=== PATIENT | female | born 1955 | race Caucasian/White ===

== ENCOUNTER 2017-03-12 09:05 | Emergency (ER) | payer MEDICARE ==
[~2017-03-12] VITALS: Ht 162.6 cm; Wt 124.7 kg
[~2017-03-12 09:05] MED LIST: ALBU2.5V5 NEB; ALPR2TAB5 PO; ASPI81TA2 PO; CALC500T PO; CETI10TA16 PO; CLON1PAT TD; DIPH25TA64 PO; DOCU100C5 PO; ERGO500012 PO; FAMO20TA5 PO; FEXO180T81 PO; FLUC150T2 PO; FLUO15CR TP; FLUT1DIS3 IH; FURO20TA3 PO; FURO40TA4 PO; GUAI5SYR PO; HYDR-2672 PO; HYDR25TA9 PO; HYDROCORTISONE28 G1 TP; LEVO25TA4 PO; LEVO500T38 PO; LEVO500T8 PO; LISI10TA2 PO; MECL25TA3 PO; METH4TAB7 PO; NYST15CR TP; OXYC1TAB9 PO; OXYC20TA PO; PANT40GR PO; PANT40TA5 PO; POTA20TA12 PO; POTA20TA82 PO; PRED-220 PO; PROAIR HFA8.5 GM IH; PROVENTIL HFA6.7 GM IH; RAMI2.5C PO; RANI300C PO; SENN8.6C2 PO; SIME125C65 PO; SUCR1TAB PO; TIOT18CA IH; TOLN15CR TP; VENL150C6 PO; VERA180T49 PO; ZOLP5TAB5 PO
[2017-03-12] MEDS ORDERED: IPRATRPIUM/ALBUTEROL 0.5/2.5MG 3 ML NEBU. NEB ONE ×2 (09:30→10:30)
--- NOTE | 2017-03-12 09:39 | EKG ---
[facility] [address] [place] [address] Test Date: 2017-03-12 Test Time: 09:10:18 Pat Name: SHANDRA LIN Department: Room: Gender: F Car Stereo Installer: Valery : 1955 Requested By: SHANDRA HALE Order Number: [id number] Reading MD: Lucas House Measurements Intervals [place] Rate: 95 P: 32 VA: 204 QRS: -11 QRSD: 84 T: 64 QT: 370 QTc: 468 Interpretive Statements SINUS RHYTHM Electronically Signed On 03-13-2017 10:35:49 CDT by Lucas House
[2017-03-12 09:48] LABS: BASO % 1 % (0-3); EOS % 4 % (0-3); HEMATOCRIT 31.3 % (36.0-47.0); LYMPH # 1.7 x10^3/uL (1.0-4.8); LYMPH % 28 % (24-48); MEAN CORPUSCULAR HEMOGLOBIN 26 pg (25-35); MEAN CORPUSCULAR HGB CONC 32 g/dL (31-37); MEAN CORPUSCULAR VOLUME 82 fL (79-100); MONO % 5 % (0-9); NEUT % 62 % (31-73); PLATELET COUNT 288 x10^3/uL (140-400); RED BLOOD COUNT 3.84 x10^6/uL (3.50-5.40); RED CELL DISTRIBUTION WIDTH 15.4 % (11.5-14.5); WHITE BLOOD COUNT 5.9 x10^3/uL (4.0-11.0)
--- NOTE | 2017-03-12 09:49 | PHYS DOC ---
Past Medical History Past Medical History: Anxiety, Asthma, Bronchitis, CHF, COPD, Depression, Hypertension, Pneumonia Additional Past Medical Histor: ulcers;gastroparesis;insomnia,TEETH INFECTION, tachycardia Past Surgical History: Hysterectomy, Tonsillectomy, Other Additional Past Surgical Histo: left breast sx; ankle ORIF W/ HARDWARE REMOVAL Alcohol Use: None Drug Use: None Adult General Chief Complaint Chief Complaint: multiple HPI HPI Patient is a 62 year old female brought from home by ambulance with multiple complaints. The patient states that she feels weak all over. She fell a week ago and still hurts all over from that fall. Today she feels short of breath and has chest pain. Patient states that she was seen at [facility] after the fall and had x-rays but everything still hurts. She was diagnosed a few weeks ago with blood clots in her lungs and she was started on Eliquis, but then when she was seen last week after a fall they told her to stop taking it because she was having falls. Patient states she has been taking her medications as prescribed including that she stopped Eliquis however has been out of her nebulized DuoNeb for some time because it is expensive and instead she has been using her pro-air inhaler. Also complains that her left hand is numb. Patient lives alone. She states she is in a wheelchair at home because she is not able to walk. PCP Dr. Xuan Cantu Review of Systems Review of Systems Constitutional: Denies fever or chills [] Eyes: Denies change in visual acuity, redness, or eye pain [] HENT: Denies nasal congestion or sore throat [] Respiratory: She is chronically on oxygen and states she is short of breath. Cardiovascular: She has had chest discomfort for an undetermined length of time GI: Denies abdominal pain, nausea, vomiting, bloody stools or diarrhea [] : Denies dysuria or hematuria [] Musculoskeletal: She hurts all over including her back and most joints Integument: Denies rash or skin lesions [] Neurologic: Denies headache, focal weakness or sensory changes [] Current Medications Current Medications Current Medications Medications (Trade) Dose Ordered Sig/Mesha Start Time Stop Time Status Last Admin Dose Admin Acetaminophen/ Hydrocodone Bitart (Lortab 5/325) 1 tab 1X ONCE 03/12/17 14:15 03/12/17 14:16 DC 03/12/17 14:16 1 TAB Albuterol/ Ipratropium (Duoneb) 3 ml 1X ONCE 03/12/17 10:30 03/12/17 10:31 DC 03/12/17 10:30 3 ML Allergies Allergies Allergies Coded Allergies Type Severity Reaction Last Updated Verified haloperidol Allergy Intermediate 09/24/16 Yes Physical Exam Physical Exam Constitutional: Well developed, well nourished, no acute distress, non-toxic appearance. Alert, mentating normally. No dyspnea. HENT: Normocephalic, atraumatic, bilateral external ears normal, nose normal. [ ] Eyes: conjunctiva normal, no discharge. [] Neck: Normal range of motion, no stridor. [] Cardiovascular:Heart rate regular rhythm, no murmur [] Lungs & Thorax: Bilateral breath sounds clear to auscultation [] Abdomen: Bowel sounds normal, soft, no tenderness, no masses, no pulsatile masses. [] Skin: Warm, dry, no erythema, no rash. [] Extremities: No tenderness, no cyanosis, no clubbing, ROM intact, no edema. Resolving ecchymoses of both knees, no joint effusion or bony tenderness, full range of motion of all extremities Neurologic: Alert and oriented X 3, normal motor function, normal sensory function, no focal deficits noted. [] Current Patient Data Vital Signs Vital Signs Date Time Temp Pulse Resp B/P (MAP) Pulse Ox O2 Delivery O2 Flow Rate FiO2 03/12/17 10:33 91 Nasal Cannula 2.0 03/12/17 09:10 98.1 83 18 190/84 (119) 98.1 Lab Values Laboratory Tests Test 03/12/17 09:40 White Blood Count 5.9 x10^3/uL (4.0-11.0) Red Blood Count 3.84 x10^6/uL (3.50-5.40) Hemoglobin 10.0 g/dL (12.0-15.5) L Hematocrit 31.3 % (36.0-47.0) L Mean Corpuscular Volume 82 fL (79-100) Mean Corpuscular Hemoglobin 26 pg (25-35) Mean Corpuscular Hemoglobin Concent 32 g/dL (31-37) Red Cell Distribution Width 15.4 % (11.5-14.5) H Platelet Count 288 x10^3/uL (140-400) Neutrophils (%) (Auto) 62 % (31-73) Lymphocytes (%) (Auto) 28 % (24-48) Monocytes (%) (Auto) 5 % (0-9) Eosinophils (%) (Auto) 4 % (0-3) H Basophils (%) (Auto) 1 % (0-3) Neutrophils # (Auto) 3.7 x10^3uL (1.8-7.7) Lymphocytes # (Auto) 1.7 x10^3/uL (1.0-4.8) Monocytes # (Auto) 0.3 x10^3/uL (0.0-1.1) Eosinophils # (Auto) 0.2 x10^3/uL (0.0-0.7) Basophils # (Auto) 0.0 x10^3/uL (0.0-0.2) Prothrombin Time 12.4 SEC (11.7-14.0) Prothrombin Time INR 1.0 (0.8-1.1) Sodium Level 142 mmol/L (136-145) Potassium Level 4.0 mmol/L (3.5-5.1) Chloride Level 101 mmol/L (98-107) Carbon Dioxide Level 38 mmol/L (21-32) H Anion Gap 3 (6-14) L Blood Urea Nitrogen 15 mg/dL (7-20) Creatinine 0.9 mg/dL (0.6-1.0) Estimated GFR (Cockcroft-Gault) 63.2 Glucose Level 107 mg/dL (70-99) H Calcium Level 9.1 mg/dL (8.5-10.1) Magnesium Level 2.1 mg/dL (1.8-2.4) Total Bilirubin 0.2 mg/dL (0.2-1.0) Direct Bilirubin 0.1 mg/dL (0.0-0.2) Aspartate Amino Transferase (AST) 16 U/L (15-37) Alanine Aminotransferase (ALT) 20 U/L (14-59) Alkaline Phosphatase 68 U/L (46-116) Creatine Kinase 63 U/L (26-192) Creatine Kinase MB (Mass) < 0.5 ng/mL (0.0-3.6) Creatine Kinase MB Relative Index % (0-4) Troponin I Quantitative < 0.017 ng/mL (0.000-0.055) XS-Zet-C-Type Natriuretic Peptide 136 pg/mL (0-124) H Total Protein 7.7 g/dL (6.4-8.2) Albumin 3.4 g/dL (3.4-5.0) Laboratory Tests 03/12/17 09:40 Laboratory Tests 03/12/17 09:40 EKG EKG 12-lead EKG read by me. Sinus rhythm. Heart rate 95. There are no acute ST or T wave changes indicative of ischemia or infarction. No STEMI. 0910[] Radiology/Procedures Radiology/Procedures One view portable chest x-ray read by the radiologist. No acute findings. [] Course & Med Decision Making Course & Med Decision Making Pertinent Labs and Imaging studies reviewed. (See chart for details) 62-year-old female presents by ambulance from home with multiple complaints. I advised the patient we will get some labs, chest x-ray, give her breathing treatment and do some evaluation of her multiple complaints. Patient was very argumentative, told me that she could tell that I don't want to help her. She continued to be very argumentative with nursing staff during her ED stay. Respiratory therapist told me that the patient states that she does not want a DuoNeb treatment because the albuterol makes her heart race too much. She said she would take just ipratropium but no albuterol. I don't feel that ipratropium alone will do her any good, she needs a DuoNeb, so she wants to decline at that is her prerogative. Patient ended up stating that she does want the breathing treatment after all so I believe respiratory therapist returned and gave her a DuoNeb treatment. Patient rested comfortably in the emergency department with stable vital signs. Labs, chest x-ray unrevealing for any acute findings. I was able to review the patient's recent hospitalization here at [place] and I also requested records from [facility]. She's had 2 recent hospitalizations at [facility], during which she has had many, many imaging studies including x-ray of many bony complaints, CT scans, bone scan. In fact, the patient did have a CT and of her chest back in January that showed pulmonary emboli of undetermined chronicity. At that time, they did start her on Eliquis but then by her history, when she came back with falls, they told her to stop it. I visited with the patient and told her that the good news is we are not finding any serious cause of her complaints today, and that I do recommend outpatient follow-up with her primary care physician for her multiple ongoing complaints. The patient was very argumentative, stating that none of his care about her, very difficult with nursing staff when they tried to help her, this appears consistent with her usual behavior both at [facility] and here at [place]. I discussed with the patient discharge to home and she stated she will be able to get home. Evidently she usually does get transported home in an ambulance because she is not ambulatory. That is not an acute finding , she told the nursing staff that she gets around in a wheelchair at home all the time. Therefore, EMS was called for transport back to the patient's home. The patient remained stable during her entire ED stay and was discharged stable to home. [] Dragon Disclaimer Dragon Disclaimer This electronic medical record was generated, in whole or in part, using a voice recognition dictation system. Departure Departure Impression: Primary Impression: Generalized pain Additional Impression: Bilateral knee pain Disposition: HOME, SELF-CARE Condition: STABLE Referrals: XUAN HARDING (PCP) Patient Instructions: Chronic Pain Management-Brief Additional Instructions: As we discussed, lab tests and x-rays in the emergency department today did not show any serious cause of your symptoms. I was also able to review recent emergency department results from [facility] to aid in my diagnosis. I recommend that you follow up with your primary care doctor for discussion of management of your chronic medical problems. Be sure you take your medications as prescribed. Whether or not a blood thinner is appropriate is something that you should discuss with your primary care doctor; do not resume the blood thinner until you discuss the risks and benefits with your primary care doctor. Problem Qualifiers SHANDRA HALE MD March 12, 2017 09:49
--- NOTE | 2017-03-12 09:51 | RAD ---
Portable AP chest. History: History hypertension, CHF, COPD, asthma AP view was taken of the chest. Comparison is made with a study from January 17. There is scarring at the left heart border at the left costophrenic angle without change. Heart is within normal limits in size. There are no acute infiltrates. There is no effusion. Impression: 1. No acute infiltrates.
[2017-03-12 09:56] LABS: PROTHROMBIN TIME PATIENT 12.4 SEC (11.7-14.0)
[2017-03-12 10:04] LABS: CALCIUM 9.1 mg/dL (8.5-10.1); CREATININE 0.9 mg/dL (0.6-1.0); GFR 63.2
[2017-03-12 10:12] LABS: ALBUMIN 3.4 g/dL (3.4-5.0); DIRECT BILIRUBIN 0.1 mg/dL (0.0-0.2); MAGNESIUM 2.1 mg/dL (1.8-2.4); TOTAL BILIRUBIN 0.2 mg/dL (0.2-1.0); TOTAL PROTEIN 7.7 g/dL (6.4-8.2)
[2017-03-12 10:19] LABS: CKMB MASS < 0.5 ng/mL (0.0-3.6); CREATINE KINASE 63 U/L (26-192)
--- NOTE | 2017-03-12 12:00 | ACF ---
Admission Forms Criteria CHEST PAIN Clinical Indications for Admission to Inpatient Care (Place 'X' for any and all applicable criteria): Admission is indicated for chest pain and ANY ONE of the following(1)(2)(3)(4)(5 ): [ ]I. Angina with acute coronary syndrome (Also use Myocardial Infarction or Angina guideline) [ ]II. Hemodynamic instability [ ]III. Angina needing acute intervention as indicated by ALL of the following( 11)(12): [ ]a) Unstable angina is present as indicated by angina that is ANY ONE of the following: [ ]i) New onset [ ]ii) Nocturnal [ ]iii) Prolonged at rest [ ]iv) Progressive [ ]b) Angina warrants acute intervention as indicated by ANY ONE of the following: [ ]i) Recurrent angina (e.g, not responding as previously to treatment) [ ]ii) Angina at rest or with low-level activities despite initial medical therapy [ ]iii) New or presumably new ST-segment depression on ECG [ ]iv) Signs or symptoms of heart failure (eg, dyspnea, pulmonary edema) [ ]v) New or worsening mitral regurgitation [ ]vi) Hemodynamic instability [ ]vii) Dangerous arrhythmia (eg, sustained ventricular tachycardia) [ ]viii) History of percutaneous coronary intervention within 6 months [ ]ix) History of coronary artery bypass graft surgery [ ]x) CARLOS risk score of 2 or greater[A] [ ]xi) History of Diabetes(14) [ ]xii) High-risk cardiac ischemia findings on noninvasive testing (e.g, echocardiogram, treadmill testing, nuclear scan) [ ]xiii) Chronic renal insufficiency (ie, estimated GFR less than 60 mL/min/1.732m) [ ]xiv) Left ventricular ejection fraction less than 40% [ ]IV. Evidence of MN (eg, cardiac biomarkers positive, ST-segment elevation on ECG) also use Myocardial Infarction Criteria Form. [ ]V. Pulmonary edema [ ]. Respiratory distress [ ]VII. Chest pain indicative of serious diagnosis other than coronary artery disease (eg, aortic dissection) [ ]VIII. Contraindications and/or Inappropriate clinical situations for Observational Care in patients with Chest Pain, when ANY ONE of the following is required: [ ]a) Patient with risk factor for pulmonary embolism, acute coronary syndrome and myocardial infarction (18) [ ]b) Patient with Pulmonary embolism require an average LOS of 4.3 days, therefore emergency department observation management is inappropriate 18,23 [ ]c) Painful condition/s in the elderly, have the highest rate of recidivism after emergency department observation management (10.8%) 20,21,22 [ ]d) Elevated cardiac biomarker requires intensive and exhaustive care (19) [XIX. General contraindications and/or Inappropriate clinical situations for Observational Care in patients with Chest Pain, when ANY ONE of the following is required: [ ]a) Prediction of prolongation of LOS based on ANY ONE of the following may be considered as a contraindication for observational care 2, 3, 4, 5, 6, 7, 8, 9, 10, 11 [ ]i) Age > 65 yrs. [ ]ii) Patient arriving by ambulance [ ]iii) Patient with high acuity [ ]iv) Patient requiring vital sign monitoring [ ]v) Patient on IV medication [X]b) Systolic blood pressures 180mmHg 3,12 [ ]c) Patient with altered mental status including delirium and other alteration of consciousness, (3) [ ]d) Patient whose discharge disposition will be to a penitentiary home or rehabilitation home should not be managed in Emergency Department Observation Unit. CMS rule requires 3 days hospital stay before such placement. 3,13 [ ]e) Patient with failure to thrive due to broad array of etiologies 3,16,17 [ ]f) Inability to ambulate 3,14 Extended stay beyond goal length of stay may be needed for (1)(28): [ ]a) Specific condition diagnosed after evaluation (eg, pulmonary embolism, aortic dissection) [ ]b) Unstable angina [ ]c) Continued suspicion of acute coronary syndrome with inability to complete needed cardiac evaluation (eg, patient clinically unable to undergo stress testing) [ ]d) Myocardial infarction (Contents from ANGINA and CHEST PAIN clinical indications for admission to inpatient care have been integrated in this form) The original [employer] content created by [employer] has been revised. The portions of the content which have been revised are identified through the use of italic text or in bold, and [employer] has neither reviewed nor approved the modified material. All other unmodified content is copyright [employer]. Please see references footnoted in the original [employer] edition 2016 CHUY MARROQUIN March 12, 2017 12:00
[2017-03-12] MEDS ORDERED: HYDROcodone/APAP 5/325MG 1 TAB TABLET PO ONE (14:15)
[2017-03-12 14:41] VITALS: BP 202/87
== END 2017-03-12 14:45 | disposition home or self-care (01) ==
LOC: ER 09:05
DX: R52 Pain, unspecified (principal); M25.562 Pain in left knee; M25.561 Pain in right knee; R07.9 Chest pain, unspecified; R06.02 Shortness of breath; F41.9 Anxiety disorder, unspecified; J44.9 Chronic obstructive pulmonary disease, unspecified; I11.0 Hypertensive heart disease with heart failure; I50.9 Heart failure, unspecified; F32.9 Major depressive disorder, single episode, unspecified; K31.84 Gastroparesis; G47.00 Insomnia, unspecified; Z90.89 Acquired absence of other organs; Z88.8 Allergy status to other drugs, medicaments and biological substances
CPT/HCPCS: 36415; 71010; 80048; 80076; 82553; 83735; 83880; 84484; 85027; 85610; 93005; 94250; 94640; 99285; J7620

== ENCOUNTER 2017-12-24 11:27 | Emergency (ER) | payer MEDICARE ==
[2017-12-24 13:00] LABS: ADD MAN DIFF? NO
[2017-12-24 13:02] LABS: BASO # 0.1 x10^3/uL (0.0-0.2); BASO % 1 % (0-3); EOS # 0.2 x10^3/uL (0.0-0.7); EOS % 3 % (0-3); HEMATOCRIT 31.1 % (36.0-47.0); HEMOGLOBIN 9.4 g/dL (12.0-15.5); LYMPH # 1.5 x10^3/uL (1.0-4.8); LYMPH % 23 % (24-48); MEAN CORPUSCULAR HEMOGLOBIN 22 pg (25-35); MEAN CORPUSCULAR HGB CONC 30 g/dL (31-37); MEAN CORPUSCULAR VOLUME 74 fL (79-100); MONO # 0.4 x10^3/uL (0.0-1.1); MONO % 6 % (0-9); NEUT # 4.5 x10^3uL (1.8-7.7); NEUT % 67 % (31-73); PLATELET COUNT 299 x10^3/uL (140-400); RED CELL DISTRIBUTION WIDTH 18.5 % (11.5-14.5); WHITE BLOOD COUNT 6.7 x10^3/uL (4.0-11.0)
[2017-12-24 13:11] LABS: ANION GAP 11 (6-14); BLOOD UREA NITROGEN 19 mg/dL (7-20); BUN/CREATININE RATIO 27 (6-20); CALCIUM 9.2 mg/dL (8.5-10.1); CARBON DIOXIDE 31 mmol/L (21-32); CHLORIDE 99 mmol/L (98-107); CREATININE 0.7 mg/dL (0.6-1.0); GFR 84.5; GLUCOSE 130 mg/dL (70-99); POTASSIUM 4.2 mmol/L (3.5-5.1); SODIUM 141 mmol/L (136-145)
[2017-12-24 13:17] LABS: ALBUMIN 3.5 g/dL (3.4-5.0); ALBUMIN/GLOBULIN RATIO 0.9 (1.0-1.7); ALK PHOS 72 U/L (46-116); ALT (SGPT) 19 U/L (14-59); AST (SGOT) 23 U/L (15-37); TOTAL BILIRUBIN 0.1 mg/dL (0.2-1.0); TOTAL PROTEIN 7.5 g/dL (6.4-8.2)
[2017-12-24 13:20] LABS: LACTIC ACID 1.8 mmol/L (0.4-2.0)
[2017-12-24 13:22] LABS: TROPONINI < 0.017 ng/mL (0.000-0.055)
[2017-12-24] MEDS ORDERED: CONTRAST GIVEN MC (13:30)
[2017-12-24 13:34] LABS: INFLUENZA A PATIENT NEGATIVE (NEGATIVE); INFLUENZA B PATIENT NEGATIVE (NEGATIVE); OBC FLU VALID
[2017-12-24] MEDS ORDERED: IOHEXOL 300 MG/ML 100ML VIAL. IV (13:45)
[2017-12-24] MEDS: cloNIDine HCL 0.1 MG TABLET PO (13:51)
[2017-12-24] MEDS: IV NORMAL SALINE 1000ML BAG 1,000 ML IV (13:54)
[2017-12-24 14:10] LABS: BILIRUBIN,URINE NEGATIVE (NEG); CLARITY,URINE CLEAR; COLOR,URINE YELLOW; GLUCOSE,URINE NEGATIVE (NEG); NITRITE,URINE NEGATIVE (NEG); PROTEIN,URINE NEGATIVE (NEG-TRACE); UROBILINOGEN,URINE 0.2 mg/dL (0.2 mg/dL)
[2017-12-24 14:16] LABS: BACTERIA,URINE MODERATE /HPF (0-FEW); RBC,URINE 0 /HPF (0-2); SQUAMOUS EPITHELIAL CELL,UR MANY /LPF; WBC,URINE OCC /HPF (0-4)
[2017-12-24 14:51] LABS: PLT ESTIMATE ADEQUATE (ADEQUATE); POLYCHROMASIA SLIGHT
[2017-12-24 14:52] LABS: ANISOCYTOSIS MOD; HYPOCHROMIA MOD; MICROCYTOSIS MARKED
[2017-12-24 15:38] LABS: TROPONINI < 0.017 ng/mL (0.000-0.055)
[2017-12-24] MEDS: IPRATRPIUM/ALBUTEROL 0.5/2.5MG 3 ML NEBU. NEB (17:58)
== END 2017-12-24 19:04 | disposition home or self-care (01) ==
LOC: ER 11:27
DX: R07.89 Other chest pain (principal); E66.9 Obesity, unspecified; F32.9 Major depressive disorder, single episode, unspecified; R06.02 Shortness of breath; R42 Dizziness and giddiness; I11.0 Hypertensive heart disease with heart failure; I50.9 Heart failure, unspecified; J45.909 Unspecified asthma, uncomplicated; K21.9 Gastro-esophageal reflux disease without esophagitis; Z90.710 Acquired absence of both cervix and uterus; Z98.890 Other specified postprocedural states; J44.9 Chronic obstructive pulmonary disease, unspecified; Z68.42 Body mass index [BMI] 45.0-49.9, adult; Z88.8 Allergy status to other drugs, medicaments and biological substances; Z88.4 Allergy status to anesthetic agent; Z88.1 Allergy status to other antibiotic agents; Z88.5 Allergy status to narcotic agent; Z91.018 Allergy to other foods; Z91.010 Allergy to peanuts
CPT/HCPCS: 36415; 71045; 80053; 81001; 83605; 84484; 85025; 85379; 87040; 87086; 87804; 87804-59; 93005; 94640; 96360; 99285-25; J7030; J7620

== ENCOUNTER 2018-01-15 13:07 | Emergency (ER) | payer MEDICARE ==
[2018-01-15 14:58] LABS: ADD MAN DIFF? NO
[2018-01-15 15:02] LABS: BASO % 0 % (0-3); EOS # 0.2 x10^3/uL (0.0-0.7); EOS % 2 % (0-3); HEMATOCRIT 35.7 % (36.0-47.0); HEMOGLOBIN 10.8 g/dL (12.0-15.5); LYMPH # 1.6 x10^3/uL (1.0-4.8); LYMPH % 18 % (24-48); MEAN CORPUSCULAR HEMOGLOBIN 23 pg (25-35); MEAN CORPUSCULAR HGB CONC 30 g/dL (31-37); MEAN CORPUSCULAR VOLUME 76 fL (79-100); MONO # 0.5 x10^3/uL (0.0-1.1); MONO % 5 % (0-9); NEUT # 6.7 x10^3uL (1.8-7.7); NEUT % 74 % (31-73); PLATELET COUNT 344 x10^3/uL (140-400); RED BLOOD COUNT 4.71 x10^6/uL (3.50-5.40); RED CELL DISTRIBUTION WIDTH 19.7 % (11.5-14.5)
[2018-01-15 15:10] LABS: ANION GAP 9 (6-14); BLOOD UREA NITROGEN 19 mg/dL (7-20); BUN/CREATININE RATIO 24 (6-20); CALCIUM 8.9 mg/dL (8.5-10.1); CARBON DIOXIDE 34 mmol/L (21-32); CHLORIDE 98 mmol/L (98-107); CREATININE 0.8 mg/dL (0.6-1.0); GFR 72.4; GLUCOSE 132 mg/dL (70-99); POTASSIUM 3.9 mmol/L (3.5-5.1); SODIUM 141 mmol/L (136-145)
[2018-01-15 15:15] LABS: ALBUMIN 3.6 g/dL (3.4-5.0); ALBUMIN/GLOBULIN RATIO 0.8 (1.0-1.7); ALK PHOS 75 U/L (46-116); ALT (SGPT) 23 U/L (14-59); AST (SGOT) 17 U/L (15-37); TOTAL BILIRUBIN 0.3 mg/dL (0.2-1.0); TOTAL PROTEIN 8.1 g/dL (6.4-8.2)
[2018-01-15] MEDS: MORPHINE SULFATE 10 MG/ML VIAL. SQ (15:40)
== END 2018-01-15 16:41 | disposition home or self-care (01) ==
LOC: ER 13:07
DX: M25.511 Pain in right shoulder (principal); G89.29 Other chronic pain; R07.89 Other chest pain; I11.0 Hypertensive heart disease with heart failure; I50.9 Heart failure, unspecified; J44.9 Chronic obstructive pulmonary disease, unspecified; I10 Essential (primary) hypertension; Z88.8 Allergy status to other drugs, medicaments and biological substances; Z88.4 Allergy status to anesthetic agent; Z88.1 Allergy status to other antibiotic agents; Z88.5 Allergy status to narcotic agent; Z91.018 Allergy to other foods; Z91.010 Allergy to peanuts
CPT/HCPCS: 36415; 73030; 80053; 85025; 96372; 99285-25; J2270

== ENCOUNTER 2018-01-24 20:05 | Emergency (ER) | payer MEDICARE ==
[2018-01-24 22:07] LABS: ADD MAN DIFF? NO
[2018-01-24 22:13] LABS: BASO # 0.1 x10^3/uL (0.0-0.2); BASO % 1 % (0-3); EOS # 0.1 x10^3/uL (0.0-0.7); EOS % 1 % (0-3); HEMATOCRIT 33.1 % (36.0-47.0); HEMOGLOBIN 10.4 g/dL (12.0-15.5); LYMPH # 1.7 x10^3/uL (1.0-4.8); LYMPH % 15 % (24-48); MEAN CORPUSCULAR HEMOGLOBIN 24 pg (25-35); MEAN CORPUSCULAR HGB CONC 31 g/dL (31-37); MEAN CORPUSCULAR VOLUME 75 fL (79-100); MONO # 0.6 x10^3/uL (0.0-1.1); MONO % 5 % (0-9); NEUT # 8.5 x10^3uL (1.8-7.7); NEUT % 78 % (31-73); PLATELET COUNT 304 x10^3/uL (140-400); RED BLOOD COUNT 4.39 x10^6/uL (3.50-5.40); RED CELL DISTRIBUTION WIDTH 18.8 % (11.5-14.5); WHITE BLOOD COUNT 10.9 x10^3/uL (4.0-11.0)
[2018-01-24 22:29] LABS: ANION GAP 5 (6-14); BLOOD UREA NITROGEN 12 mg/dL (7-20); BUN/CREATININE RATIO 15 (6-20); CALCIUM 9.2 mg/dL (8.5-10.1); CARBON DIOXIDE 35 mmol/L (21-32); CHLORIDE 99 mmol/L (98-107); CREATININE 0.8 mg/dL (0.6-1.0); GFR 72.4; GLUCOSE 113 mg/dL (70-99); POTASSIUM 3.6 mmol/L (3.5-5.1); SODIUM 139 mmol/L (136-145)
[2018-01-24 22:35] LABS: ALBUMIN 3.6 g/dL (3.4-5.0); ALBUMIN/GLOBULIN RATIO 0.8 (1.0-1.7); ALK PHOS 75 U/L (46-116); ALT (SGPT) 20 U/L (14-59); AST (SGOT) 14 U/L (15-37); TOTAL BILIRUBIN 0.3 mg/dL (0.2-1.0)
[2018-01-24] MEDS: MORPHINE SULFATE 4 MG/ML DISP.SYRIN. IV/SQ ×2 (22:37→23:13)
[2018-01-24 22:38] LABS: TROPONINI < 0.017 ng/mL (0.000-0.055)
== END 2018-01-25 | disposition home or self-care (01) ==
LOC: ER 01-25
DX: K02.9 Dental caries, unspecified (principal); K08.89 Other specified disorders of teeth and supporting structures; I11.0 Hypertensive heart disease with heart failure; I50.9 Heart failure, unspecified; J44.9 Chronic obstructive pulmonary disease, unspecified; Z88.1 Allergy status to other antibiotic agents; Z88.8 Allergy status to other drugs, medicaments and biological substances; Z88.4 Allergy status to anesthetic agent; Z88.5 Allergy status to narcotic agent; Z91.018 Allergy to other foods; Z91.010 Allergy to peanuts
CPT/HCPCS: 36415; 70450; 70486; 80053; 84484; 85025; 93005; 96374; 96376; 99285-25; J2270

== ENCOUNTER 2018-05-04 16:11 | Inpatient (IN) | payer MEDICARE ==
[2018-05-04 16:52] LABS: ADD MAN DIFF? NO
[2018-05-04 16:56] LABS: BASO # 0.1 x10^3/uL (0.0-0.2); BASO % 1 % (0-3); EOS # 0.1 x10^3/uL (0.0-0.7); EOS % 1 % (0-3); HEMATOCRIT 35.5 % (36.0-47.0); HEMOGLOBIN 11.1 g/dL (12.0-15.5); LYMPH # 1.5 x10^3/uL (1.0-4.8); LYMPH % 14 % (24-48); MEAN CORPUSCULAR HEMOGLOBIN 24 pg (25-35); MEAN CORPUSCULAR HGB CONC 31 g/dL (31-37); MEAN CORPUSCULAR VOLUME 78 fL (79-100); MONO # 0.5 x10^3/uL (0.0-1.1); MONO % 5 % (0-9); NEUT # 8.6 x10^3uL (1.8-7.7); NEUT % 80 % (31-73); PLATELET COUNT 317 x10^3/uL (140-400); RED BLOOD COUNT 4.58 x10^6/uL (3.50-5.40); RED CELL DISTRIBUTION WIDTH 17.6 % (11.5-14.5); WHITE BLOOD COUNT 10.8 x10^3/uL (4.0-11.0)
[2018-05-04 17:01] LABS: BILIRUBIN,URINE NEGATIVE (NEG); CLARITY,URINE CLEAR; COLOR,URINE YELLOW; GLUCOSE,URINE NEGATIVE (NEG); NITRITE,URINE NEGATIVE (NEG); PH,URINE 6.5; PROTEIN,URINE NEGATIVE (NEG-TRACE)
[2018-05-04 17:08] LABS: ANION GAP 8 (6-14); BLOOD UREA NITROGEN 16 mg/dL (7-20); CALCIUM 8.8 mg/dL (8.5-10.1); CARBON DIOXIDE 36 mmol/L (21-32); CHLORIDE 93 mmol/L (98-107); CREATININE 0.9 mg/dL (0.6-1.0); GLUCOSE 111 mg/dL (70-99); POTASSIUM 3.3 mmol/L (3.5-5.1); SODIUM 137 mmol/L (136-145)
[2018-05-04 17:13] LABS: BACTERIA,URINE 0 /HPF (0-FEW); HYALINE CASTS, URINE FEW /HPF; SQUAMOUS EPITHELIAL CELL,UR MOD /LPF; WBC,URINE 0 /HPF (0-4)
[2018-05-04 17:14] LABS: ALBUMIN 3.8 g/dL (3.4-5.0); ALK PHOS 83 U/L (46-116); ALT (SGPT) 21 U/L (14-59); AST (SGOT) 18 U/L (15-37); DIRECT BILIRUBIN 0.1 mg/dL (0.0-0.2); LIPASE 111 U/L (73-393); TOTAL BILIRUBIN 0.5 mg/dL (0.2-1.0); TOTAL PROTEIN 8.7 g/dL (6.4-8.2)
[2018-05-04 17:15] LABS: TROPONINI < 0.017 ng/mL (0.000-0.055)
[2018-05-04 17:19] LABS: NT-PRO BNP 86 pg/mL (0-124)
[2018-05-04 18:48] LABS: D-DIMER 0.46 ug/mlFEU (0.00-0.50)
[2018-05-04] MEDS: ASPIRIN 325 MG TABLET PO (20:59)
[2018-05-04] MEDS ORDERED: ONDANSETRON PF 4 MG/2 ML VIAL. IV (21:45)
[2018-05-04] MEDS: IV NORMAL SALINE 1000ML BAG 1,000 ML IV (22:47)
[2018-05-05] MEDS: MORPHINE SULFATE 4 MG/ML DISP.SYRIN. IV ×4 (00:30→17:59)
[2018-05-05] MEDS: MECLIZINE HCL 12.5 MG TABLET. PO ×2 (00:30→23:51)
[2018-05-05 01:59] LABS: TROPONINI < 0.017 ng/mL (0.000-0.055)
[2018-05-05] MEDS: ALBUTEROL SULFATE 2.5 MG/3 ML NEBU. NEB ×2 (07:30→15:39)
[2018-05-05] MEDS: PANTOPRAZOLE 40 MG TABLET.DR. PO ×2 (07:30→16:45)
[2018-05-05] MEDS: IV NORMAL SALINE 1000ML BAG 1,000 ML IV (07:45)
[2018-05-05] MEDS: DOCUSATE SODIUM 100 MG CAPSULE. PO (08:11)
[2018-05-05] MEDS: CETIRIZINE HCL 10 MG TABLET. PO (08:11)
[2018-05-05] MEDS: ASPIRIN CHEWABLE 81 MG TABLET. PO (08:11)
[2018-05-05] MEDS: VERAPAMIL SR 120 MG TABLET.ER. PO (10:00)
[2018-05-05] MEDS: POTASSIUM CHLORIDE 20 MEQ TABLET.ER. PO (10:00)
[2018-05-05 12:46] LABS: HEMOGLOBIN 10.6 g/dL (12.0-15.5); MEAN CORPUSCULAR HEMOGLOBIN 25 pg (25-35); MEAN CORPUSCULAR HGB CONC 32 g/dL (31-37); MEAN CORPUSCULAR VOLUME 77 fL (79-100); PLATELET COUNT 278 x10^3/uL (140-400); RED BLOOD COUNT 4.31 x10^6/uL (3.50-5.40); RED CELL DISTRIBUTION WIDTH 17.6 % (11.5-14.5)
[2018-05-05 12:55] LABS: ANION GAP 6 (6-14); BLOOD UREA NITROGEN 14 mg/dL (7-20); CALCIUM 8.6 mg/dL (8.5-10.1); CARBON DIOXIDE 36 mmol/L (21-32); CHLORIDE 96 mmol/L (98-107); CREATININE 0.7 mg/dL (0.6-1.0); GFR 84.2; GLUCOSE 105 mg/dL (70-99); POTASSIUM 3.6 mmol/L (3.5-5.1); SODIUM 138 mmol/L (136-145)
[2018-05-05 13:00] LABS: CREATINE KINASE 163 U/L (26-192)
[2018-05-05 13:09] LABS: THYROID STIM HORMONE (TSH) 1.193 uIU/mL (0.358-3.74)
[2018-05-05] MEDS ORDERED: CONTRAST GIVEN. MC (16:00)
[2018-05-05] MEDS: IOHEXOL 300 MG/ML 100ML VIAL. IV (16:00)
[2018-05-05 21:37] LABS: BARBITURATES NEG (NEG); BENZODIAZEPINES POS (NEG); CANNABINOIDS NEG (NEG); COCAINE NEG (NEG); METHADONE NEG (NEG); OPIATES POS (NEG); PHENCYCLIDINE NEG (NEG)
[2018-05-05 21:39] LABS: AMPHETAMINE/METHAMPHETAMINE NEG (NEG); ETHANOL, URINE NEG (NEG)
[2018-05-05] MEDS: ZOLPIDEM 5 MG TABLET. PO (23:51)
[2018-05-05] MEDS: cloNIDine TTS-1 1 PATCH PATCH.TDWK TD (23:51)
[2018-05-06] MEDS: MORPHINE SULFATE 4 MG/ML DISP.SYRIN. IV (01:43)
[2018-05-06 08:16] LABS: HEMATOCRIT 33.7 % (36.0-47.0); HEMOGLOBIN 10.4 g/dL (12.0-15.5); MEAN CORPUSCULAR HEMOGLOBIN 24 pg (25-35); MEAN CORPUSCULAR HGB CONC 31 g/dL (31-37); MEAN CORPUSCULAR VOLUME 78 fL (79-100); PLATELET COUNT 275 x10^3/uL (140-400); RED CELL DISTRIBUTION WIDTH 17.5 % (11.5-14.5); WHITE BLOOD COUNT 7.9 x10^3/uL (4.0-11.0)
[2018-05-06 08:33] LABS: ALBUMIN 3.4 g/dL (3.4-5.0); ALBUMIN/GLOBULIN RATIO 0.8 (1.0-1.7); ALK PHOS 75 U/L (46-116); ALT (SGPT) 21 U/L (14-59); ANION GAP 5 (6-14); AST (SGOT) 19 U/L (15-37); BLOOD UREA NITROGEN 13 mg/dL (7-20); BUN/CREATININE RATIO 16 (6-20); CALCIUM 8.7 mg/dL (8.5-10.1); CARBON DIOXIDE 36 mmol/L (21-32); CHLORIDE 97 mmol/L (98-107); CREATININE 0.8 mg/dL (0.6-1.0); GFR 72.2; GLUCOSE 75 mg/dL (70-99); POTASSIUM 3.1 mmol/L (3.5-5.1); SODIUM 138 mmol/L (136-145); TOTAL BILIRUBIN 0.4 mg/dL (0.2-1.0); TOTAL PROTEIN 7.8 g/dL (6.4-8.2)
[2018-05-06] MEDS: DULoxetine HCL 30 MG CAPSULE.DR PO ×2 (09:00→09:09)
[2018-05-06] MEDS: DOCUSATE SODIUM 100 MG CAPSULE. PO (09:08)
[2018-05-06] MEDS: LOSARTAN POTASSIUM 50 MG TABLET. PO ×2 (09:08→11:17)
[2018-05-06] MEDS: ASPIRIN CHEWABLE 81 MG TABLET. PO (09:08)
[2018-05-06] MEDS: PANTOPRAZOLE 40 MG TABLET.DR. PO ×2 (09:08→16:30)
[2018-05-06] MEDS: CETIRIZINE HCL 10 MG TABLET. PO (09:08)
[2018-05-06] MEDS: VERAPAMIL SR 120 MG TABLET.ER. PO ×2 (09:09→11:17)
[2018-05-06 09:35] LABS: SEDIMENTATION RATE 35 (0-25)
[2018-05-06] MEDS: ALBUTEROL SULFATE 2.5 MG/3 ML NEBU. NEB ×2 (10:38→22:51)
[2018-05-06] MEDS: clonazePAM 0.5 MG TABLET PO ×2 (11:00→21:17)
[2018-05-06] MEDS: POTASSIUM CHLORIDE 20 MEQ TABLET.ER. PO (11:00)
[2018-05-06 11:32] LABS: VITAMIN-B12 1168 pg/mL (247-911)
[2018-05-06] MEDS: ALPRAZolam 1 MG TABLET PO ×3 (12:58→22:40)
[2018-05-06] MEDS ORDERED: hydrALAZINE 20 MG/ML VIAL. IVP (15:30)
[2018-05-06] MEDS: ENOXAPARIN 40 MG/0.4 ML SYRINGE. SQ (20:00)
[2018-05-06] MEDS: DICLOFENAC SODIUM 1% TOPICAL GEL 100GM TUBE. TP (21:00)
[2018-05-06] MEDS: ZOLPIDEM 5 MG TABLET. PO (21:17)
[2018-05-06] MEDS: diphenhydrAMINE HCL 25 MG CAPSULE PO (22:40)
[2018-05-07] MEDS: MORPHINE SULFATE 4 MG/ML DISP.SYRIN. IV (01:26)
[2018-05-07 05:25] LABS: HEMATOCRIT 30.2 % (36.0-47.0); HEMOGLOBIN 9.4 g/dL (12.0-15.5); MEAN CORPUSCULAR HEMOGLOBIN 24 pg (25-35); MEAN CORPUSCULAR HGB CONC 31 g/dL (31-37); MEAN CORPUSCULAR VOLUME 78 fL (79-100); PLATELET COUNT 259 x10^3/uL (140-400); RED BLOOD COUNT 3.86 x10^6/uL (3.50-5.40); RED CELL DISTRIBUTION WIDTH 18.1 % (11.5-14.5)
[2018-05-07 05:42] LABS: ALBUMIN 3.1 g/dL (3.4-5.0); ALBUMIN/GLOBULIN RATIO 0.8 (1.0-1.7); ALK PHOS 70 U/L (46-116); ALT (SGPT) 23 U/L (14-59); ANION GAP 3 (6-14); AST (SGOT) 18 U/L (15-37); BLOOD UREA NITROGEN 16 mg/dL (7-20); BUN/CREATININE RATIO 18 (6-20); CALCIUM 8.6 mg/dL (8.5-10.1); CARBON DIOXIDE 37 mmol/L (21-32); CHLORIDE 99 mmol/L (98-107); CREATININE 0.9 mg/dL (0.6-1.0); GLUCOSE 78 mg/dL (70-99); POTASSIUM 3.1 mmol/L (3.5-5.1); SODIUM 139 mmol/L (136-145); TOTAL BILIRUBIN 0.3 mg/dL (0.2-1.0); TOTAL PROTEIN 7.2 g/dL (6.4-8.2)
[2018-05-07] MEDS: PANTOPRAZOLE 40 MG TABLET.DR. PO ×3 (07:30→21:08)
[2018-05-07 07:58] LABS: SEDIMENTATION RATE 38 (0-25)
[2018-05-07] MEDS: ENOXAPARIN 40 MG/0.4 ML SYRINGE. SQ ×2 (08:00→20:52)
[2018-05-07] MEDS: CETIRIZINE HCL 10 MG TABLET. PO (09:00)
[2018-05-07] MEDS: VERAPAMIL SR 120 MG TABLET.ER. PO (09:00)
[2018-05-07] MEDS: DICLOFENAC SODIUM 1% TOPICAL GEL 100GM TUBE. TP ×2 (09:00→20:56)
[2018-05-07] MEDS ORDERED: LOSARTAN POTASSIUM 50 MG TABLET. PO (09:00)
[2018-05-07] MEDS: LOSARTAN POTASSIUM 50 MG TABLET. PO (09:00)
[2018-05-07] MEDS: DULoxetine HCL 30 MG CAPSULE.DR PO (09:00)
[2018-05-07] MEDS: ASPIRIN CHEWABLE 81 MG TABLET. PO (09:00)
[2018-05-07] MEDS: DOCUSATE SODIUM 100 MG CAPSULE. PO (09:00)
[2018-05-07] MEDS: IV RINGERS,LACTATED 1000ML 1,000 ML IV ×2 (13:05→13:06)
[2018-05-07] MEDS ORDERED: LIDOCAINE 1% PF 2 ML VIAL. ID (13:15)
[2018-05-07] MEDS ORDERED: PROPOFOL 20 ML IV (14:16)
[2018-05-07] MEDS ORDERED: LIDOCAINE 2% PF Vial for OR 5 ML VIAL. (14:16)
[2018-05-07] MEDS: HYDROcodone/APAP 5/325MG 1 TAB TABLET PO (20:55)
[2018-05-07] MEDS: ZOLPIDEM 5 MG TABLET. PO (20:56)
[2018-05-07] MEDS: ALPRAZolam 1 MG TABLET PO (21:08)
[2018-05-07] MEDS: ALBUTEROL SULFATE 2.5 MG/3 ML NEBU. NEB (21:49)
[2018-05-08] MEDS: HYDROcodone/APAP 5/325MG 1 TAB TABLET PO ×3 (02:03→14:01)
[2018-05-08] MEDS: DULoxetine HCL 30 MG CAPSULE.DR PO (08:51)
[2018-05-08] MEDS: ENOXAPARIN 40 MG/0.4 ML SYRINGE. SQ (08:51)
[2018-05-08] MEDS: CETIRIZINE HCL 10 MG TABLET. PO (08:52)
[2018-05-08] MEDS: PANTOPRAZOLE 40 MG TABLET.DR. PO (08:52)
[2018-05-08] MEDS: VERAPAMIL SR 120 MG TABLET.ER. PO (08:52)
[2018-05-08] MEDS: LOSARTAN POTASSIUM 50 MG TABLET. PO (08:53)
[2018-05-08] MEDS: DOCUSATE SODIUM 100 MG CAPSULE. PO (08:53)
[2018-05-08] MEDS: methylPREDNISolone ACETATE 40 MG/ML VIAL. IM ×2 (09:00)
[2018-05-08] MEDS: BUPIVACAINE MPF 0.25% 10 ML VIAL. IJ (09:00)
[2018-05-08] MEDS: ASPIRIN CHEWABLE 81 MG TABLET. PO (09:09)
[2018-05-08] MEDS: DICLOFENAC SODIUM 1% TOPICAL GEL 100GM TUBE. TP (09:10)
[2018-05-08] MEDS: ALPRAZolam 1 MG TABLET PO (14:01)
[2018-05-08] MEDS: FERROUS SULFATE 325 MG TABLET. PO ×2 (14:01→16:30)
[2018-05-09 15:49] LABS: ANA INTERP Negative (.)
[2018-05-10 12:20] LABS: METANEPH UR 263 ug/L (Undefined); NORMETANEPHRINES UR 1133 ug/L (Undefined); TOTAL METANEPHRINES UR 216 ug/24 hr (45-290)
[2018-05-10 23:13] LABS: 5 HIAA URINE 5.4 mg/L (Undefined); 5-HIAA UR 24HR 4.4 mg/24 hr (0.0-14.9); VMA UR 7.2 mg/L (Undefined); VMA URINE 24HR 5.9 mg/24 hr (0.0-7.5)
[2018-05-11 03:21] LABS: ALDOSTERONE 8.2 ng/dL (0.0-30.0); ALDOSTERONE/RENIN RATIO 1.7 (0.0-30.0)
== END 2018-05-08 17:46 | disposition home health service (06) | DRG 392 ==
LOC: 2 NORTH 21:39 → ER 16:11 → 2 NORTH 19:33 → 6 SOUTH 05-06 16:01
PROVIDERS: Internal Medicine
PROC: 3E0U3BZ Introduction of Anesthetic Agent into Joints, Percutaneous Approach (ICD-10-PCS; principal; 2018-05-07 14:25)
PROC: 3E0U33Z Introduction of Anti-inflammatory into Joints, Percutaneous Approach (ICD-10-PCS; 2018-05-07 14:25)
PROC: 0D758ZZ Dilation of Esophagus, Via Natural or Artificial Opening Endoscopic (ICD-10-PCS; 2018-05-07 14:25)
DX: R13.10 Dysphagia, unspecified (principal); I50.32 Chronic diastolic (congestive) heart failure; E46 Unspecified protein-calorie malnutrition; Z68.42 Body mass index [BMI] 45.0-49.9, adult; F41.9 Anxiety disorder, unspecified; J44.9 Chronic obstructive pulmonary disease, unspecified; F32.9 Major depressive disorder, single episode, unspecified; K31.84 Gastroparesis; I11.0 Hypertensive heart disease with heart failure; G89.29 Other chronic pain; I25.10 Atherosclerotic heart disease of native coronary artery without angina pectoris; K21.9 Gastro-esophageal reflux disease without esophagitis; E03.9 Hypothyroidism, unspecified; E11.43 Type 2 diabetes mellitus with diabetic autonomic (poly)neuropathy; E66.01 Morbid (severe) obesity due to excess calories; G47.00 Insomnia, unspecified; M17.0 Bilateral primary osteoarthritis of knee; M47.812 Spondylosis without myelopathy or radiculopathy, cervical region; R29.6 Repeated falls; I99.8 Other disorder of circulatory system; F60.3 Borderline personality disorder; G47.30 Sleep apnea, unspecified; R09.02 Hypoxemia; R32 Unspecified urinary incontinence; Z86.711 Personal history of pulmonary embolism; Z87.01 Personal history of pneumonia (recurrent); Z87.11 Personal history of peptic ulcer disease; Z87.440 Personal history of urinary (tract) infections; Z86.73 Personal history of transient ischemic attack (TIA), and cerebral infarction without residual deficits; Z90.710 Acquired absence of both cervix and uterus; Z88.1 Allergy status to other antibiotic agents; Z88.8 Allergy status to other drugs, medicaments and biological substances; Z99.81 Dependence on supplemental oxygen; Z91.19 Patient's noncompliance with other medical treatment and regimen; Z86.718 Personal history of other venous thrombosis and embolism; Z87.891 Personal history of nicotine dependence; Z86.010 Personal history of colon polyps; Z91.018 Allergy to other foods; Z82.49 Family history of ischemic heart disease and other diseases of the circulatory system; Z80.0 Family history of malignant neoplasm of digestive organs
CPT/HCPCS: 36415; 51702; 70450; 71045; 71275; 72100; 72125; 73565; 80048; 80053; 80076; 80307; 81001; 82306; 82550; 82607; 83497; 83690; 83835; 83880; 84443; 84484; 84585; 85025; 85027; 85379; 85651; 86038; 86141; 87086; 93005; 94640; 94760; 97110-GP; 97162-GP; 97166-GO; 99285-25; J1030; J1650; J2001; J2270; J2704; J3490; J7030; J7120; J7613; J8597; Q0163

== ENCOUNTER 2018-05-17 22:26 | Emergency (ER) | payer MEDICARE ==
[2018-05-17] MEDS: FUROSEMIDE 40 MG TABLET. PO (22:53)
[2018-05-17] MEDS: VERAPAMIL SR 120 MG TABLET.ER. PO (22:54)
[2018-05-17] MEDS: DOXAZOSIN MESYLATE 1 MG TABLET. PO (22:55)
[2018-05-18] MEDS: cloNIDine HCL 0.1 MG TABLET PO (00:22)
== END 2018-05-18 02:20 | disposition home or self-care (01) ==
LOC: ER 22:26
DX: I11.0 Hypertensive heart disease with heart failure (principal); J44.9 Chronic obstructive pulmonary disease, unspecified; Z88.4 Allergy status to anesthetic agent; Z88.8 Allergy status to other drugs, medicaments and biological substances; Z88.1 Allergy status to other antibiotic agents; Z88.5 Allergy status to narcotic agent; Z91.018 Allergy to other foods
CPT/HCPCS: 99284

== ENCOUNTER 2019-12-05 13:58 | Emergency (ER) | payer MEDICARE ==
[~2019-12-05] VITALS: Ht 165.1 cm; Wt 123.0 kg
[~2019-12-05 13:58] MED LIST changes: +ALBU2.5V14 NEB; +ALBU2.5V8 IH; +ALBU2.5V8 INH; +AMOX500C PO; +ASPI-630 PO; -ASPI81TA2 PO; +ASPI81TA59 PO; +CALC500O PO; -CALC500T PO; +CALC500T31 PO; +DIPH50CA PO; +DOCU100C28 PO; -DOCU100C5 PO; -ERGO500012 PO; +ERGO500027 PO; +HYDR-2145 PO; -HYDR-2672 PO; +HYDR-2769 PO; -HYDR25TA9 PO; +LACT1TAB20 PO; -LEVO500T38 PO; +LEVO500T59 PO; +MECL-75 PO; -MECL25TA3 PO; +NITR0.4T22 SL; +NYST15CR2 TP; +OXYC-411 PO; -OXYC1TAB9 PO; -PANT40TA5 PO; +PANT40TA77 PO; +POTA20TA4 PO; -POTA20TA82 PO; -PROAIR HFA8.5 GM IH; -RAMI2.5C PO; +RAMI2.5C2 PO; +SENN-37 PO; -VERA180T49 PO; +VERA180T6 PO; +VERA240C2 PO; +medrol pack PO
--- NOTE | 2019-12-05 14:31 | PHYS DOC ---
Past Medical History Past Medical History: Anxiety, Asthma, Bronchitis, CHF, COPD, Depression, Hypertension, Pneumonia Additional Past Medical Histor: ulcers;gastroparesis;insomnia,TEETH INFECTION,tachycardia Past Surgical History: Hysterectomy, Tonsillectomy, Other Additional Past Surgical Histo: left breast sx; ankle ORIF W/ HARDWARE REMOVAL Smoking Status: Former Smoker Alcohol Use: None Drug Use: None Adult General Chief Complaint Chief Complaint: CC: Weakness HPI HPI Patient is a 64 year old female who is brought to the ER by EMS secondary to report of weakness. Patient is very well-known to this facility and she has a very long and drawn out history when asked why she came to the ER. She was at [facility] for 4 months and then she was transferred to a rehabilitation facility in [place] and then she was admitted to [facility] for observation and then she was transferred back to [place]. Patient reports she was at home for 5 minutes but did not feel safe at home because of weakness and she called him once and was transported to our emergency department. The patient has a history of being admitted to psychiatric facilities as well. Patient denies chest pain or shortness of breath today. Review of Systems Review of Systems All other ROS is negative unless otherwise stated in HPI Allergies Allergies Allergies Coded Allergies Type Severity Reaction Last Updated Verified lisinopril Allergy Severe 05/07/18 Yes lorazepam Allergy Severe SOA 05/07/18 Yes tree nut Allergy Severe anaphylaxis 05/07/18 Yes bupropion Allergy Intermediate 05/07/18 Yes clonazepam Allergy Intermediate 05/07/18 Yes erythromycin base Allergy Intermediate 05/07/18 Yes fentanyl Allergy Intermediate 05/07/18 Yes haloperidol Allergy Intermediate 05/07/18 Yes ondansetron Allergy Intermediate 05/07/18 Yes Physical Exam Physical Exam See above Constitutional: Well developed, well nourished, no acute distress, non-toxic appearance. [] HENT: Normocephalic, atraumatic, bilateral external ears normal, oropharynx moist, no oral exudates, nose normal. [] Eyes: PERRLA, EOMI, conjunctiva normal, no discharge. [] Neck: Normal range of motion, no tenderness, supple, no stridor. [] Cardiovascular:Heart rate regular rhythm, no murmur [] Lungs & Thorax: Bilateral breath sounds clear to auscultation [] Abdomen: Bowel sounds normal, soft, no tenderness, no masses, no pulsatile masses. [] Skin: Warm, dry, no erythema, no rash. [] Back: No tenderness, no CVA tenderness. [] Extremities: No tenderness, no cyanosis, no clubbing, ROM intact, no edema. [] Neurologic: Alert and oriented X 3, normal motor function, normal sensory function, no focal deficits noted. [] Current Patient Data Vital Signs Vital Signs Date Time Temp Pulse Resp B/P (MAP) Pulse Ox O2 Delivery O2 Flow Rate FiO2 12/05/19 14:05 98.4 99 22 162/72 (102) 94 Nasal Cannula 2.0 98.4 Lab Values Laboratory Tests Test 12/05/19 14:45 12/05/19 15:46 White Blood Count 8.8 x10^3/uL (4.0-11.0) Red Blood Count 4.11 x10^6/uL (3.50-5.40) Hemoglobin 12.1 g/dL (12.0-15.5) Hematocrit 36.9 % (36.0-47.0) Mean Corpuscular Volume 90 fL (79-100) Mean Corpuscular Hemoglobin 30 pg (25-35) Mean Corpuscular Hemoglobin Concent 33 g/dL (31-37) Red Cell Distribution Width 13.5 % (11.5-14.5) Platelet Count 261 x10^3/uL (140-400) Neutrophils (%) (Auto) 73 % (31-73) Lymphocytes (%) (Auto) 20 % (24-48) L Monocytes (%) (Auto) 4 % (0-9) Eosinophils (%) (Auto) 2 % (0-3) Basophils (%) (Auto) 1 % (0-3) Neutrophils # (Auto) 6.4 x10^3/uL (1.8-7.7) Lymphocytes # (Auto) 1.8 x10^3/uL (1.0-4.8) Monocytes # (Auto) 0.4 x10^3/uL (0.0-1.1) Eosinophils # (Auto) 0.2 x10^3/uL (0.0-0.7) Basophils # (Auto) 0.1 x10^3/uL (0.0-0.2) Sodium Level 141 mmol/L (136-145) Potassium Level 3.9 mmol/L (3.5-5.1) Chloride Level 97 mmol/L (98-107) L Carbon Dioxide Level 41 mmol/L (21-32) H Anion Gap 3 (6-14) L Blood Urea Nitrogen 16 mg/dL (7-20) Creatinine 0.9 mg/dL (0.6-1.0) Estimated GFR (Cockcroft-Gault) 62.8 Glucose Level 120 mg/dL (70-99) H Calcium Level 8.8 mg/dL (8.5-10.1) Troponin I Quantitative < 0.017 ng/mL (0.000-0.055) QE-Krm-Q-Type Natriuretic Peptide 72 pg/mL (0-124) Urine Collection Type Unknown Urine Color Yellow Urine Clarity Cloudy Urine pH 5.5 Urine Specific [place] 1.015 Urine Protein Negative mg/dL (NEG-TRACE) Urine Glucose (UA) Negative mg/dL (NEG) Urine Ketones (Stick) Negative mg/dL (NEG) Urine Blood Negative (NEG) Urine Nitrite Negative (NEG) Urine Bilirubin Negative (NEG) Urine Urobilinogen Dipstick 0.2 mg/dL (0.2 mg/dL) Urine Leukocyte Esterase Negative (NEG) Urine RBC 0 /HPF (0-2) Urine WBC Occ /HPF (0-4) Urine Squamous Epithelial Cells Mod /LPF Urine Bacteria Few /HPF (0-FEW) Laboratory Tests 12/05/19 14:45 Laboratory Tests 12/05/19 14:45 EKG EKG [] Radiology/Procedures Radiology/Procedures [] Course & Med Decision Making Course & Med Decision Making Pertinent Labs and Imaging studies reviewed. (See chart for details) 1431: Patient is seen for reported weakness. Given her history I will check labs obtain EKG and chest x-ray and urinalysis. If her workup today is unremarkable we'll discuss with social work regarding placement options potentially Dragon Disclaimer Dragon Disclaimer This electronic medical record was generated, in whole or in part, using a voice recognition dictation system. Departure Departure Impression: Primary Impression: Weakness generalized Disposition: HOME, SELF-CARE Condition: STABLE Referrals: NO PCP (PCP) Patient Instructions: Weakness Additional Instructions: You will have home health come to your house tomorrow. Please follow up with your doctor next week for further care and evaluation ENOC ZAMUDIO DO Dec 05, 2019 14:31
--- NOTE | 2019-12-05 14:53 | RAD ---
CHEST AP ONLY Clinical Indication: Weakness Comparison: AP chest May 04, 2018. Findings: Cardiac size upper limits of normal. There are hazy opacities in the bilateral lung bases. Upper lungs are clear. There is no pneumothorax. No pleural effusion is appreciated. No acute bone abnormality. IMPRESSION: Hazy opacities in the bilateral lung bases may be atelectasis, infiltrate, or asymmetric edema. Electronically signed by: Ishmael Sorenson MD (12/05/2019 2:51 PM) [id number]
[2019-12-05 14:57] LABS: BASO # 0.1 x10^3/uL (0.0-0.2); BASO % 1 % (0-3); EOS # 0.2 x10^3/uL (0.0-0.7); EOS % 2 % (0-3); HEMATOCRIT 36.9 % (36.0-47.0); HEMOGLOBIN 12.1 g/dL (12.0-15.5); LYMPH # 1.8 x10^3/uL (1.0-4.8); LYMPH % 20 % (24-48); MEAN CORPUSCULAR HEMOGLOBIN 30 pg (25-35); MEAN CORPUSCULAR HGB CONC 33 g/dL (31-37); MEAN CORPUSCULAR VOLUME 90 fL (79-100); MONO # 0.4 x10^3/uL (0.0-1.1); MONO % 4 % (0-9); NEUT # 6.4 x10^3/uL (1.8-7.7); NEUT % 73 % (31-73); PLATELET COUNT 261 x10^3/uL (140-400); RED BLOOD COUNT 4.11 x10^6/uL (3.50-5.40); RED CELL DISTRIBUTION WIDTH 13.5 % (11.5-14.5); WHITE BLOOD COUNT 8.8 x10^3/uL (4.0-11.0)
[2019-12-05 15:06] LABS: CALCIUM 8.8 mg/dL (8.5-10.1); CREATININE 0.9 mg/dL (0.6-1.0); GFR 62.8; POTASSIUM 3.9 mmol/L (3.5-5.1)
[2019-12-05 15:57] LABS: BILIRUBIN,URINE NEGATIVE (NEG); CLARITY,URINE CLOUDY; COLOR,URINE YELLOW; NITRITE,URINE NEGATIVE (NEG); PH,URINE 5.5; PROTEIN,URINE NEGATIVE (NEG-TRACE); UROBILINOGEN,URINE 0.2 mg/dL (0.2 mg/dL)
[2019-12-05 16:11] LABS: BACTERIA,URINE FEW /HPF (0-FEW); RBC,URINE 0 /HPF (0-2); SQUAMOUS EPITHELIAL CELL,UR MOD /LPF; WBC,URINE OCC /HPF (0-4)
[2019-12-05 17:16] VITALS: BP 144/65
[2019-12-08] MEDS ORDERED: FLUT1DIS5 IH (22:01)
[2019-12-08] MEDS ORDERED: ALPR0.5T6 PO (22:03)
[2019-12-08] MEDS ORDERED: CYCL10TA2 PO (22:38)
[2019-12-08] MEDS ORDERED: FERR324T14 PO (22:38)
[2019-12-08] MEDS ORDERED: TIOT18CA IH (22:38)
[2019-12-08] MEDS ORDERED: CYAN25003 SL (22:38)
[2019-12-08] MEDS ORDERED: XOPENEX0.63 MG/3 NEB (22:38)
[2019-12-08] MEDS ORDERED: IPRA0.2S5 NEB (22:38)
[2019-12-08] MEDS ORDERED: CARV6.2511 PO (22:38)
[2019-12-08] MEDS ORDERED: HYDR-2763 PO (22:42)
[2019-12-08] MEDS ORDERED: LOSA-73 PO (22:42)
== END 2019-12-05 17:34 | disposition home or self-care (01) ==
LOC: ER 13:58
DX: R53.1 Weakness (principal); J44.9 Chronic obstructive pulmonary disease, unspecified; I11.0 Hypertensive heart disease with heart failure; I50.9 Heart failure, unspecified; F41.9 Anxiety disorder, unspecified; F32.9 Major depressive disorder, single episode, unspecified; Z87.891 Personal history of nicotine dependence; Z88.4 Allergy status to anesthetic agent; Z88.5 Allergy status to narcotic agent; Z88.8 Allergy status to other drugs, medicaments and biological substances; Z91.018 Allergy to other foods
CPT/HCPCS: 36415; 71045; 80048; 81001; 83880; 84484; 85025; 99284-25; 99285-25

== ENCOUNTER → 2022-01-03 | Outpatient (CLI) | payer MEDICARE, MEDICAID ==
[2019-12-11 19:24] VITALS: BP 135/51
[~2022-01-03] MED LIST changes: +ALPR0.5T6 PO; +CARV6.2511 PO; +CYAN25003 SL; +CYCL10TA19 PO; -DIPH50CA PO; +DIPH50CA16 PO; +FERR324T14 PO; -FLUC150T2 PO; +FLUC150T6 PO; +FLUT1DIS5 IH; +HYDR-2763 PO; +IPRA0.2S5 NEB; -LEVO500T8 PO; +LEVO500T9 PO; +LISI10TA16 PO; -LISI10TA2 PO; +LOSA-73 PO; -OXYC-411 PO; +OXYC1TAB20 PO; -RAMI2.5C2 PO; +RAMI2.5C41 PO; +VERA180T34 PO; -VERA180T6 PO; +XOPENEX0.63 MG/3 NEB
--- NOTE | 2022-01-03 10:40 | RAD ---
PROCEDURE: US BREAST LT, MG DIAGNOSTIC BILAT HISTORY: The patient is 66 years old and is seen for Reason: Abnormal LT mamm; LT Breast Lump / Spl. Instructions: / History: . COMPARISON: September 23, 2015. July 2011 TECHNIQUE: CC and MLO views of both breasts were obtained. Images were processed by the [employer] computer-aided detection system. Left breast ultrasound DENSITY: There are scattered fibroglandular densities. FINDINGS: Right mammogram: Biopsy marker right inferior medial breast. No suspicious macrocalcification, mass o r architectural distortion. Benign-appearing calcifications. Left mammogram: Asymmetry within the retroareolar region, likely in the region of previous lumpectomy . No suspicious mass, architectural distortion or macro calcification. Left ultrasound: Small hypoechoic was examined lesion within the left breast 12:00 position 4 cm from the nipple measures 0.4 x 0.3 cm. Heterogeneous appearance of the retroareolar region likely within the prior lumpectomy site. Small left breast intramammary lymph node 5:00 position 6 cm from the nipp le. IMPRESSION: 1. Probably benign findings. 2. Small hypoechoic lesion within the left breast, most likely complicated cyst. Recommend 6 month f ollow-up ultrasound. Recommend annual screening mammograms per [employer] guidelines. BI-RADS category 3 Probably benign Our clinic nurse has been instructed to assist with communicating findings and recommendations to the patient's referring physician and in scheduling follow-up. Patient entered into a reminder system for annual screening mammogram. Electronically signed by: Roel Sumner DO (01/03/2022 10:37 AM) [id number]
== END ==
LOC: MAMMO 08:55
PROVIDERS: ATTEND Internal Medicine
DX: N63.23 Unspecified lump in the left breast, lower outer quadrant (principal); N64.89 Other specified disorders of breast
CPT/HCPCS: 76641; 77066